=== PATIENT | male | born 1955 | race Asian ===

== ENCOUNTER 2021-03-09 11:55 | Emergency (ER) | payer MEDICARE ==
[~2021-03-09] VITALS: Ht 165.1 cm; Wt 77.3 kg
[2021-03-09 12:03] VITALS: BP 131/87
[2021-03-09] MEDS ORDERED: INSU3INS5 SQ (12:06)
[2021-03-09] MEDS ORDERED: METF-960 PO (12:06)
[2021-03-09] MEDS ORDERED: AMLO1CAP6 PO (12:06)
[2021-03-09] MEDS ORDERED: ATOR20TA86 PO (12:06)
[2021-03-09] MEDS ORDERED: LIDOCAINE 5% TRANSDERMAL PATCH TD ONE (12:30)
[2021-03-09] MEDS ORDERED: ACETAMINOPHEN 325 MG TABLET PO ONE (12:30)
== END 2021-03-09 14:37 | disposition home or self-care (01) ==
LOC: EMS 11:55
DX: M54.5 Low back pain (principal); Z79.84 Long term (current) use of oral hypoglycemic drugs; Z79.899 Other long term (current) drug therapy
CPT/HCPCS: 81002; 82962; 99283

== ENCOUNTER 2021-05-18 07:52 | Inpatient (IN) | payer MEDICARE ==
[~2021-05-18] VITALS: Ht 165.1 cm; Wt 78.1 kg
[~2021-05-18 07:52] MED LIST: AMLO1CAP6 PO; ATOR20TA86 PO; INSU3INS5 SQ; METF-960 PO
[2021-05-18 08:30] LABS: BASOPHILS % (AUTO) 1.2 % (0.0-2.0); EOSINOPHILS % (AUTO) 1.6 % (1.0-6.0); HEMATOCRIT 44.2 % (41-53); HEMOGLOBIN 14.7 g/dL (13.5-17.5); LYMPHOCYTES # (AUTO) 2.1 K/uL (1.0-4.8); LYMPHOCYTES % (AUTO) 26.3 % (22.0-44.0); MEAN CORPUSCULAR HEMOGLOBIN 30.6 pg (26.0-34.0); MEAN CORPUSCULAR HGB CONC 33.2 G/dL (31.0-37.0); MEAN CORPUSCULAR VOLUME 92 fL (80-100); MONOCYTES # (AUTO) 0.6 K/uL (0.1-1.0); MONOCYTES % (AUTO) 7.7 % (2.0-9.0); NEUTROPHILS # (AUTO) 5.2 K/uL (1.8-7.7); NEUTROPHILS % (AUTO) 63.2 % (40.0-70.0); PLATELET COUNT (AUTO) 216 K/uL (150-450); RED CELL DISTRIBUTION WIDTH 13.7 % (11.5-14.5)
[2021-05-18 08:37] LABS: ANION GAP 10 mmol/L (8-16); CALCIUM, TOTAL 9.7 mg/dL (8.8-10.5); CARBON DIOXIDE 28 mmol/L (22-29); CHLORIDE 99 mmol/L (98-107); CREATININE 1.18 mg/dL (0.60-1.30); GLOMERULAR FILTR. RATE CALC > 60 mL/min (>60); GLUCOSE,RANDOM 204 mg/dL (70-110); POTASSIUM 4.7 mmol/L (3.5-5.1); SODIUM SERUM 137 mmol/L (136-145); UREA NITROGEN, BLOOD 16 mg/dL (7-18)
[2021-05-18 08:41] LABS: PROTHROMBIN TIME 10.7 SEC (9.4-11.6)
[2021-05-18 08:43] LABS: B-TYPE NATRIURETIC PEPTIDE 56 pg/mL (0-100)
[2021-05-18] MEDS ORDERED: SODIUM CHLORIDE 0.9% 1,000 ML IV ONE (08:45)
[2021-05-18] MEDS ORDERED: MECLIZINE HCL 25 MG TABLET PO ONE (08:45)
[2021-05-18 09:02] LABS: ALANINE AMINOTRANSFERASE 44 U/L (12-78); ALKALINE PHOSPHATASE 58 U/L (46-116); ASPARTATE AMINOTRANSFERASE 22 U/L (15-37); BILIRUBIN,TOTAL 1.1 mg/dL (0.1-1.0); CREATINE KINASE, TOTAL ONLY 138 U/L (39-308); TOTAL PROTEIN, SERUM 7.7 g/dL (6.4-8.2)
[2021-05-18 09:22] LABS: COVID AG,FIA SOURCE NASOPHARYNGEAL
[2021-05-18 09:25] LABS: APPEARANCE,URINE CLEAR (CLEAR); BILIRUBIN,URINE NEGATIVE (NEGATIVE); GLUCOSE, URINE (UA) 100 mg/dL (NEGATIVE); KETONES,URINE NEGATIVE (NEGATIVE); LEUKOCYTE ESTERASE ,URINE NEGATIVE (NEGATIVE); NITRATE,URINE NEGATIVE (NEGATIVE); OCCULT BLOOD,URINE NEGATIVE (NEGATIVE); PROTEIN,URINE SEE CONFIRM (NEGATIVE); UROBILINOGEN,URINE 0.2 mg/dL (<=1.0)
[2021-05-18 10:09] LABS: BACTERIA,URINE None Seen /HPF (None Seen); RBC,URINE None Seen /HPF (0-2); SULFOSALICYLIC ACID,URINE 1+ (Negative); WBC,URINE None Seen /HPF (0-5)
[2021-05-18 11:10] LABS: GLUCOSE,POINT OF CARE 235 MG/DL (70-110)
[2021-05-18] MEDS ORDERED: CefTRIAXone 1 GM/DEXTROSE 50 ML IV ONE (11:15)
[2021-05-18] MEDS ORDERED: AZITHROMYCIN 500 MG/NS 250 ML IV ONE (11:15)
[2021-05-18] MEDS ORDERED: AmLODIPine BESYLATE 5 MG TABLET PO ONE (12:15)
[2021-05-18] MEDS ORDERED: BENAZEPRIL HCL 20 MG TABLET PO ONE (12:15)
[2021-05-18] MEDS ORDERED: 0.9% SODIUM CHLORIDE 10 ML SYRINGE IVP PRN (13:45)
[2021-05-18] MEDS ORDERED: ONDANSETRON HCL 4 MG/2 ML VIAL IVP PRN (13:45)
[2021-05-18] MEDS ORDERED: ACETAMINOPHEN 325 MG TABLET PO PRN ×2 (13:45→14:45)
[2021-05-18] MEDS ORDERED: BISACODYL 10 MG RECTAL RECTAL SUPPOSITORY PR PRN (14:45)
[2021-05-18] MEDS ORDERED: OxyCODONE HCL/ACETAMINOPHEN 5-325 MG TABLET PO PRN (14:45)
[2021-05-18] MEDS ORDERED: IPRATROPIUM BROMIDE 0.5 MG/2.5 ML NEB SOLUTION NEB PRN (14:45)
[2021-05-18] MEDS ORDERED: MORPHINE SULFATE 2 MG/ML SYRINGE IVP PRN (14:45)
[2021-05-18] MEDS ORDERED: ALBUTEROL SULFATE 2.5 MG/0.5 ML NEB SOLUTION NEB PRN (14:45)
[2021-05-18] MEDS ORDERED: MAGNESIUM HYDROXIDE SUSPENSION 30 ML UDCUP PO PRN (14:45)
[2021-05-18] MEDS ORDERED: DEXTROSE 50%-WATER 25 GM/50 ML SYRINGE IVP PRN (17:30)
[2021-05-18] MEDS: INSULIN LISPRO 100 UNITS/ML SQ PRN ×2 (17:48→22:26)
[2021-05-18 18:21] LABS: GLUCOSE,POINT OF CARE 314 MG/DL (70-110)
[2021-05-18 19:10] VITALS: BP 154/84
[2021-05-18] MEDS ORDERED: CALCIUM CARBONATE 500 MG CHEWABLE TABLET CHEW PRN (21:15)
[2021-05-19] VITALS (7 sets, daily range): BP systolic 102–157; BP diastolic 54–99
[2021-05-19 00:57] LABS: GLUCOMETER DEV NAME(LOC) 5N.3; GLUCOSE,POINT OF CARE 399 MG/DL (70-110)
[2021-05-19] MEDS: INSULIN LISPRO 100 UNITS/ML SQ PRN ×4 (06:00→21:37)
[2021-05-19 07:10] LABS: BASOPHILS % (AUTO) 1.4 % (0.0-2.0); EOSINOPHILS % (AUTO) 3.8 % (1.0-6.0); HEMATOCRIT 43.4 % (41-53); HEMOGLOBIN 14.7 g/dL (13.5-17.5); LYMPHOCYTES # (AUTO) 2.4 K/uL (1.0-4.8); LYMPHOCYTES % (AUTO) 31.9 % (22.0-44.0); MEAN CORPUSCULAR HEMOGLOBIN 31.1 pg (26.0-34.0); MEAN CORPUSCULAR HGB CONC 33.9 G/dL (31.0-37.0); MEAN CORPUSCULAR VOLUME 92 fL (80-100); MONOCYTES # (AUTO) 0.7 K/uL (0.1-1.0); MONOCYTES % (AUTO) 8.7 % (2.0-9.0); NEUTROPHILS # (AUTO) 4.1 K/uL (1.8-7.7); NEUTROPHILS % (AUTO) 54.2 % (40.0-70.0); PLATELET COUNT (AUTO) 222 K/uL (150-450); RED BLOOD CELL COUNT(AUTO) 4.74 MIL/uL (4.50-5.90); RED CELL DISTRIBUTION WIDTH 13.6 % (11.5-14.5)
[2021-05-19 08:09] LABS: ALANINE AMINOTRANSFERASE 42 U/L (12-78); ALBUMIN 3.5 g/dL (3.4-5.0); ALKALINE PHOSPHATASE 56 U/L (46-116); ANION GAP 6 mmol/L (8-16); ASPARTATE AMINOTRANSFERASE 21 U/L (15-37); BILIRUBIN,TOTAL 0.9 mg/dL (0.1-1.0); CALCIUM, TOTAL 9.3 mg/dL (8.8-10.5); CARBON DIOXIDE 28 mmol/L (22-29); CHLORIDE 102 mmol/L (98-107); CREATININE 1.17 mg/dL (0.60-1.30); GLOMERULAR FILTR. RATE CALC > 60 mL/min (>60); GLUCOSE,RANDOM 223 mg/dL (70-110); POTASSIUM 4.8 mmol/L (3.5-5.1); SODIUM SERUM 136 mmol/L (136-145); TOTAL PROTEIN, SERUM 7.2 g/dL (6.4-8.2); UREA NITROGEN, BLOOD 19 mg/dL (7-18)
[2021-05-19] MEDS ORDERED: SODIUM CHLORIDE 0.9% 1,000 ML ONE (08:26)
[2021-05-19] MEDS: CefTRIAXone 1 GM/DEXTROSE 50 ML IV SCH (08:40)
[2021-05-19] MEDS: PANTOPRAZOLE SODIUM 40 MG DR TABLET PO SCH (08:40)
[2021-05-19] MEDS: ATORVASTATIN CALCIUM 20 MG TABLET PO SCH (08:40)
[2021-05-19] MEDS: AZITHROMYCIN 500 MG/NS 250 ML IV SCH (09:46)
[2021-05-19 12:56] LABS: GLUCOMETER DEV NAME(LOC) 5N.3; GLUCOSE,POINT OF CARE 225 MG/DL (70-110)
[2021-05-19 20:22] LABS: GLUCOMETER DEV NAME(LOC) 5N.1C; GLUCOSE,POINT OF CARE 263 MG/DL (70-110)
[2021-05-19 20:22] LABS: GLUCOMETER DEV NAME(LOC) 5N.1C; GLUCOSE,POINT OF CARE 260 MG/DL (70-110)
[2021-05-20] VITALS (7 sets, daily range): BP systolic 149–177; BP diastolic 85–114
[2021-05-20 00:33] LABS: GLUCOMETER DEV NAME(LOC) 5N.3; GLUCOSE,POINT OF CARE 291 MG/DL (70-110)
[2021-05-20] MEDS: INSULIN LISPRO 100 UNITS/ML SQ PRN ×3 (06:04→17:45)
[2021-05-20 06:24] LABS: GLUCOMETER DEV NAME(LOC) 5S.2B; GLUCOSE,POINT OF CARE 293 MG/DL (70-110)
[2021-05-20] MEDS: ATORVASTATIN CALCIUM 20 MG TABLET PO SCH (08:07)
[2021-05-20] MEDS: CefTRIAXone 1 GM/DEXTROSE 50 ML IV SCH (08:07)
[2021-05-20] MEDS: PANTOPRAZOLE SODIUM 40 MG DR TABLET PO SCH (08:07)
[2021-05-20] MEDS: AZITHROMYCIN 500 MG/NS 250 ML IV SCH (08:52)
[2021-05-20] MEDS ORDERED: AZIT-84 PO (14:48)
[2021-05-20] MEDS ORDERED: PROM473S4 PO (14:49)
[2021-05-20] MEDS ORDERED: AmLODIPine BESYLATE 10 MG TABLET PO ONE (16:15)
[2021-05-20 17:37] LABS: GLUCOMETER DEV NAME(LOC) 5N.3; GLUCOSE,POINT OF CARE 328 MG/DL (70-110)
[2021-05-21 03:42] LABS: GLUCOMETER DEV NAME(LOC) 5S.2B; GLUCOSE,POINT OF CARE 281 MG/DL (70-110)
== END 2021-05-20 18:30 | disposition home or self-care (01) | DRG 73 ==
LOC: EMS 07:52 → 5N 17:49
PROVIDERS: ADMIT Internal Medicine; ATTEND Internal Medicine
DX: G90.8 Other disorders of autonomic nervous system (principal); J18.9 Pneumonia, unspecified organism; K21.9 Gastro-esophageal reflux disease without esophagitis; Z20.822 Contact with and (suspected) exposure to COVID-19; E78.5 Hyperlipidemia, unspecified; E11.9 Type 2 diabetes mellitus without complications; M19.90 Unspecified osteoarthritis, unspecified site; M54.9 Dorsalgia, unspecified; I10 Essential (primary) hypertension
CPT/HCPCS: 70450; 71045; 80053; 81001; 81002; 82550; 82962; 83880; 84484; 85025; 85610; 85730; 87040; 93005; 93880; 97163; 99285; J0456; J0696; J1815; J7030; 36415-L1; 36415-TC; U0003